=== PATIENT | female | born 1970 | race Caucasian/White ===

== ENCOUNTER 2018-04-01 01:37 | Emergency (ER) | payer BC, OTHER ==
[~2018-04-01] VITALS: Ht 170.2 cm; Wt 122.7 kg
[2018-04-01] MEDS ORDERED: LIDOcaine 1.5% w/epinephrine 1:200,000 5ml ampul IJ ONE ×2 (02:10→07:00)
[2018-04-01 02:20] LABS: BASOPHILS % (AUTO) 0.4 % (0-1); EOSINOPHILS % (AUTO) 0.1 % (0-6); HEMATOCRIT 44.8 % (35.0-45.0); LYMPHOCYTES % (AUTO) 20.5 % (21-51); MEAN CORPUSCULAR HEMOGLOBIN 29.5 PG (27.0-31.0); MEAN CORPUSCULAR HGB CONC 33.5 % (33.0-36.5); MEAN CORPUSCULAR VOLUME 88.1 FL (78-98); MEAN PLATELET VOLUME 9.4 FL (7.4-10.4); MONOCYTES # (AUTO) 0.6 X10'3 (0-0.9); MONOCYTES % (AUTO) 5.7 % (2-12); NEUTROPHILS # (AUTO) 7.2 X10'3 (1.8-7.7); NEUTROPHILS % (AUTO) 73.3 % (42-75); PLATELET COUNT 236 X10'3 (140-440); RED BLOOD COUNT 5.08 X10'6 (4.20-5.60); RED CELL DISTRIBUTION WIDTH 12.1 % (11.5-14.5); WHITE BLOOD COUNT 9.8 X10'3 (4.5-11.0)
[2018-04-01 02:44] LABS: ALANINE AMINOTRANSFERASE 21 U/L (12-78); ALBUMIN 4.1 G/DL (3.4-5.0); ALBUMIN/GLOBULIN RATIO 1.2 (1.1-1.5); ALKALINE PHOSPHATASE 60 IU/L (46-116); ANION GAP 15 (8-16); ASPARTATE AMINO TRANSFERASE 14 U/L (10-37); BILIRUBIN,TOTAL 0.5 MG/DL (0.1-1.0); BLOOD UREA NITROGEN 12 MG/DL (7-18); BUN/CREATININE RATIO 13.6 (6.6-38.0); CALCIUM 9.4 MG/DL (8.5-10.1); CHLORIDE 99 MMOL/L (99-107); CREATININE 0.88 MG/DL (0.40-0.90); ETHANOL 0.205 GM/DL (0.0-0.010); GLUCOSE 98 MG/DL (70-104); POTASSIUM 3.6 MMOL/L (3.5-5.1); SODIUM 137 MMOL/L (135-145); TOTAL CARBON DIOXIDE 22.8 MMOL/L (24-32); TOTAL PROTEIN 7.6 G/DL (6.4-8.2); eGFR 69 ML/MIN
[2018-04-01] MEDS ORDERED: hydrOXYzine 25 MG tablet PO ONE (04:35)
[2018-04-01 08:00] VITALS: BP 156/84
[2018-04-01] MEDS ORDERED: LORazepam 1 MG tablet PO ONE (10:25)
[2018-04-01 11:06] LABS: CLARITY,URINE CLOUDY (Clear); COLOR,URINE YELLOW (Yellow); GLUCOSE, URINE NEGATIVE (Neg); KETONES,URINE 40 mg/dl (Neg); LEUKOCYTE ESTERASE ,URINE NEGATIVE (Neg); NITRITES, URINE NEGATIVE (Neg); OCCULT BLOOD,URINE NEGATIVE (Neg); PROTEIN,URINE TRACE mg/dl (Neg); UROBILINOGEN,URINE 0.2 E.U/dL (0.2-1.0)
[2018-04-01 11:08] LABS: URINE HCG NEGATIVE (NEG)
[2018-04-01] MEDS ORDERED: BACL10TA PO ×2 (11:08→18:46)
[2018-04-01] MEDS ORDERED: FURO-150 PO (11:08)
[2018-04-01] MEDS ORDERED: LISI-600 PO ×2 (11:08→18:46)
[2018-04-01] MEDS ORDERED: HYDR-3965 PO (11:08)
[2018-04-01] MEDS ORDERED: TRAZ-143 PO ×2 (11:08→18:46)
[2018-04-01] MEDS ORDERED: CLON-529 PO ×2 (11:08→18:46)
[2018-04-01] MEDS ORDERED: DULO-31 PO (11:08)
[2018-04-01] MEDS ORDERED: PHEN105C PO (11:08)
[2018-04-01 11:17] LABS: UA COLLECTION TYPE CLN CATCH MIDSTREAM
[2018-04-01 11:18] LABS: RBC,URINE NONE SEEN /HPF (0-2); URINE AMPHETAMINE SCREEN NEGATIVE (Neg); URINE BARBITUATE SCREEN NEGATIVE (Neg); URINE BENZODIAZEPINES SCREEN NEGATIVE (Neg); URINE CANNABINOID SCREEN POSITIVE (Neg); URINE COCAINE SCREEN NEGATIVE (Neg); URINE METHADONE SCREEN NEGATIVE (Neg); URINE OPIATE SCREEN NEGATIVE (Neg); URINE PHENCYCLIDINE SCREEN NEGATIVE (Neg); WBC,URINE 0-4 /HPF (0-4)
[2018-04-01 11:19] LABS: BACTERIA,URINE NONE SEEN /HPF (Neg); MUCUS STRANDS FEW /LPF (Neg); SQUAMOUS EPITHELIAL CELL,UR MODERATE /LPF (FEW)
[2018-04-01] MEDS ORDERED: LORazepam 1 MG tablet PO PRN (17:20)
== END 2018-04-01 19:25 ==
LOC: ER 01:37
DX: S51.812A Laceration without foreign body of left forearm, initial encounter (principal); R45.851 Suicidal ideations; F10.129 Alcohol abuse with intoxication, unspecified; Z79.899 Other long term (current) drug therapy; X78.8XXA Intentional self-harm by other sharp object, initial encounter; Y93.89 Activity, other specified; Y92.89 Other specified places as the place of occurrence of the external cause; Y99.8 Other external cause status; Y90.0 Blood alcohol level of less than 20 mg/100 ml
CPT/HCPCS: 12002; 36415; 80053; 80305; 80320; 81001; 81025; 84443; 85025; 99285; A6449; J3490; Q0177; 12032; 99284

== ENCOUNTER 2018-04-01 17:08 | Inpatient (IN) | payer BC ==
[~2018-04-01] VITALS: Ht 170.2 cm; Wt 119.5 kg
[~2018-04-01 17:08] MED LIST: BACL10TA PO; CLON-529 PO; DULO-31 PO; FURO-150 PO; HYDR-3965 PO; LISI-600 PO; PHEN105C PO; TRAZ-143 PO
[2018-04-01] MEDS ORDERED: mag hydrox/Alum hydrox/simeth 30ml oral suspension PO PRN (18:30)
[2018-04-01] MEDS ORDERED: acetaminophen 325mg tablet PO PRN ×2 (18:30)
[2018-04-01] MEDS ORDERED: magnesium hydroxide 30ml (MOM) UD suspension PO PRN (18:30)
[2018-04-01] MEDS ORDERED: LISI-600 PO (18:46)
[2018-04-01] MEDS ORDERED: CLON-529 PO (18:46)
[2018-04-01] MEDS ORDERED: BACL10TA PO (18:46)
[2018-04-01] MEDS ORDERED: TRAZ-143 PO (18:46)
[2018-04-01] MEDS ORDERED: traZODone 50mg tablet PO PRN (19:00)
[2018-04-01] MEDS: cloNIDine 0.1 mg tablet PO SCH (20:00)
[2018-04-01 20:30] VITALS: BP 129/82
[2018-04-01] MEDS ORDERED: duloxetine 30mg CAPSULE.DR PO SCH (21:00)
[2018-04-01] MEDS: LORazepam 0.5 MG tablet PO PRN (21:26)
[2018-04-01] MEDS: temazepam 15mg capsule PO PRN (21:26)
[2018-04-02] MEDS: cloNIDine 0.1 mg tablet PO SCH (08:00)
[2018-04-02] MEDS ORDERED: lisinopril 10 MG tablet PO SCH (08:00)
[2018-04-02 08:05] LABS: CHOL/HDL RATIO 2.6 (0.00-4.99); CHOLESTEROL 182 MG/DL (0-200); HDL CHOLESTEROL 69 MG/DL (35-60); HEMOGLOBIN A1C 5.4 % (4.5-6.2); LDL CHOLESTEROL 93 MG/DL (50-100); TRIGLYCERIDES 83 MG/DL (20-135)
[2018-04-02 08:26] VITALS: BP 132/89
[2018-04-02] MEDS: LORazepam 0.5 MG tablet PO PRN ×2 (08:37→20:42)
[2018-04-02] MEDS: furosemide 20MG tablet PO SCH (08:37)
[2018-04-02] MEDS ORDERED: cloNIDine 0.1 mg tablet PO PRN (12:50)
[2018-04-02] MEDS ORDERED: buPROPion 75mg tablet PO ONE (12:50)
[2018-04-02] MEDS: baclofen 10mg tablet PO PRN (14:10)
[2018-04-02 19:18] VITALS: BP 113/70
[2018-04-02] MEDS: sulfamethoxazole/trimethoprim DS (800/160mg) tablet PO SCH (20:00)
[2018-04-02] MEDS: temazepam 15mg capsule PO PRN (21:05)
[2018-04-03 08:00] VITALS: BP 117/63
[2018-04-03] MEDS ORDERED: folic acid 1mg tablet PO SCH (08:00)
[2018-04-03] MEDS ORDERED: potassium Cl 20 mEq SR tablet PO SCH (08:00)
[2018-04-03] MEDS: sulfamethoxazole/trimethoprim DS (800/160mg) tablet PO SCH ×2 (08:00→20:00)
[2018-04-03] MEDS ORDERED: thiamine 100mg tablet PO SCH (08:00)
[2018-04-03] MEDS: buPROPion 75mg tablet PO SCH (08:30)
[2018-04-03] MEDS: duloxetine 30mg CAPSULE.DR PO SCH (08:31)
[2018-04-03] MEDS: furosemide 20MG tablet PO SCH (08:31)
[2018-04-03] MEDS: baclofen 10mg tablet PO PRN ×2 (09:21→20:56)
[2018-04-03] MEDS: LORazepam 0.5 MG tablet PO PRN ×2 (15:14→20:56)
[2018-04-03 19:26] VITALS: BP 133/88
[2018-04-03] MEDS: temazepam 15mg capsule PO PRN (20:56)
[2018-04-04 07:45] VITALS: BP 114/86
[2018-04-04] MEDS: furosemide 20MG tablet PO SCH (07:55)
[2018-04-04] MEDS: LORazepam 0.5 MG tablet PO PRN (07:55)
[2018-04-04] MEDS: buPROPion 75mg tablet PO SCH (07:55)
[2018-04-04] MEDS: sulfamethoxazole/trimethoprim DS (800/160mg) tablet PO SCH (08:00)
[2018-04-04] MEDS: duloxetine 30mg CAPSULE.DR PO SCH (08:00)
[2018-04-04] MEDS ORDERED: BUPR75TA12 PO (13:06)
[2018-04-04] MEDS ORDERED: DULO30CA51 PO (13:06)
[2018-04-04] MEDS ORDERED: TEMA15CA PO (13:06)
[2018-04-04] MEDS ORDERED: lactobacillus rhamnosus 10,000 MMU CELLS/CAPSULE PO SCH (20:00)
== END 2018-04-04 14:10 | disposition home or self-care (01) | DRG 885 ==
LOC: ADULT MH 17:08
PROVIDERS: ADMIT Psychiatry & Neurology Psychiatry; ATTEND Psychiatry & Neurology Psychiatry
DX: F33.2 Major depressive disorder, recurrent severe without psychotic features (principal); R45.851 Suicidal ideations; Z68.41 Body mass index [BMI] 40.0-44.9, adult; G40.909 Epilepsy, unspecified, not intractable, without status epilepticus; F10.129 Alcohol abuse with intoxication, unspecified; F12.90 Cannabis use, unspecified, uncomplicated; F41.9 Anxiety disorder, unspecified; G89.4 Chronic pain syndrome; R00.0 Tachycardia, unspecified; I10 Essential (primary) hypertension; Z79.899 Other long term (current) drug therapy; Z87.820 Personal history of traumatic brain injury; Z90.710 Acquired absence of both cervix and uterus; Z91.410 Personal history of adult physical and sexual abuse; Z88.6 Allergy status to analgesic agent
CPT/HCPCS: 36415; 80061; 83036; 87070; A6255